=== PATIENT | female | born 1940 | race Hispanic/Latino ===

== ENCOUNTER 2018-08-16 06:00 | Day surgery (SDC) | payer OTHER ==
[2018-08-14 12:13] VITALS: BP 116/63
[2018-08-14 12:38] LABS: BASOPHILS % (AUTO) 0.8 % (0.0-5.0); EOSINOPHILS % (AUTO) 6.5 % (0.0-8.0); LYMPHOCYTES % (AUTO) 26.2 % (21.0-51.0); MEAN CORPUSCULAR HEMOGLOBIN 31.6 pg (27.0-33.0); MEAN CORPUSCULAR HGB CONC 33.3 g/dL (32.0-36.0); MEAN CORPUSCULAR VOLUME 94.6 fL (79-99); MONOCYTES % (AUTO) 9.2 % (3.0-13.0); NEUTROPHILS % (AUTO) 57.3 % (40.0-77.0); PLATELET COUNT (AUTO) 198 K/uL (130-400); RED BLOOD CELL COUNT(AUTO) 4.33 MIL/uL (4.00-5.50); RED CELL DISTRIBUTION WIDTH 13.7 % (11.0-15.5); WHITE BLOOD COUNT (AUTO) 5.4 K/uL (4.8-10.8)
[2018-08-14 12:39] LABS: APPEARANCE,URINE Turbid (CLEAR); BILIRUBIN,URINE Negative (NEGATIVE); COLOR,URINE Dark Yellow (YELLOW); GLUCOSE, URINE (UA) Negative (NEGATIVE); KETONES,URINE Trace mg/dL (NEGATIVE); LEUKOCYTE ESTERASE ,URINE Large (NEGATIVE); NITRATE,URINE Positive (NEGATIVE); OCCULT BLOOD,URINE Small (NEGATIVE); PH,URINE 5.5 (5.0-8.0); PROTEIN,URINE Trace (NEGATIVE)
[2018-08-14 12:46] LABS: CREATININE 1.4 mg/dL (0.5-1.5)
[2018-08-14 12:56] LABS: BACTERIA,URINE Many /HPF (None Seen); RBC,URINE None Seen /HPF (0-1)
[2018-08-14 12:57] LABS: SQUAMOUS EPITHELIAL CELL,UR Few /HPF (0-2)
[2018-08-14 12:58] LABS: WBC,URINE >100 /HPF (0-1)
[2018-08-14 13:02] LABS: INR 0.96 (0.85-1.15); PARTIAL THROMBOPLASTIN TIME 27.5 SEC (26.3-35.5); PROTHROMBIN TIME 10.1 SEC (9.6-11.6)
[~2018-08-16] VITALS: Ht 147.3 cm; Wt 96.6 kg
[2018-08-16] VITALS (11 sets, daily range): BP systolic 85–126; BP diastolic 44–71
[~2018-08-16 06:00] MED LIST: ASPI-1012 PO; BISA5TAB12 PO; CEFTRIAXONE SODIUM 1 GM IVP ONE; CHOL400C9 PO; FISH1CAP63 PO; HYDR-4064 PO; LEVO5TAB13 PO; LOSA25TA16 PO; MONT10TA24 PO; PANT40TA25 PO; VITA1CAP85 PO
[2018-08-16] MEDS ORDERED: SODIUM CHLORIDE 0.9% 1000ML 1,000 ML IV ONE (06:24)
[2018-08-16] MEDS ORDERED: LIDOCAINE HCL-MPF 2% 5ML VIAL ONE (07:11)
[2018-08-16] MEDS ORDERED: NITROGLYCERIN 5 MG/ML 10 ML VIAL IV ONE (07:11)
[2018-08-16] MEDS ORDERED: CEFTRIAXONE SODIUM 1 GM ONE (07:11)
[2018-08-16] MEDS ORDERED: BIVALIRUDIN 250 MG/VIAL IV ONE (07:11)
[2018-08-16] MEDS ORDERED: IOHEXOL-350 50ML VIAL IV ONE (07:14)
[2018-08-16] MEDS ORDERED: IOHEXOL 350 MG/ML 100ML INFUS..BTL IV ONE (07:14)
[2018-08-16] MEDS ORDERED: FENTANYL CITRATE PF 50 MCG/1 ML 2ML VIAL ONE (07:44)
[2018-08-16] MEDS ORDERED: MIDAZOLAM HCL 1 MG/ML 2ML VIAL ONE (07:44)
[2018-08-16] MEDS ORDERED: SODIUM CHLORIDE 0.9% 1000ML 1,000 ML IV SCH (08:20)
[2018-08-16] MEDS ORDERED: GLUCAGON 1MG KIT 1 MG ML IM PRN (08:30)
[2018-08-16] MEDS ORDERED: DEXTROSE 50%-WATER 50 ML DISP.SYRIN IV PRN (08:30)
[2018-08-16] MEDS ORDERED: NITROGLYCERIN 0.4 MG SL TAB SL PRN (08:30)
[2018-08-16] MEDS ORDERED: ACETAMINOPHEN-CODEINE 300/30MG TAB PO PRN (08:30)
[2018-08-16] MEDS ORDERED: METOPROLOL TARTRATE 1 MG/ML 5ML VIAL IV PRN (08:30)
== END 2018-08-16 14:40 | disposition home or self-care (01) ==
LOC: DAH 06:00 → SUH 06:00
PROVIDERS: ATTEND Internal Medicine Cardiovascular Disease
DX: I25.118 Atherosclerotic heart disease of native coronary artery with other forms of angina pectoris (principal); I50.32 Chronic diastolic (congestive) heart failure; J44.9 Chronic obstructive pulmonary disease, unspecified; N18.3 Chronic kidney disease, stage 3 (moderate); K21.9 Gastro-esophageal reflux disease without esophagitis; J45.909 Unspecified asthma, uncomplicated; E66.01 Morbid (severe) obesity due to excess calories; E78.2 Mixed hyperlipidemia; I83.008 Varicose veins of unspecified lower extremity with ulcer other part of lower leg; Z95.5 Presence of coronary angioplasty implant and graft; Z79.899 Other long term (current) drug therapy; Z79.82 Long term (current) use of aspirin; Z98.890 Other specified postprocedural states; Z79.01 Long term (current) use of anticoagulants; Z90.49 Acquired absence of other specified parts of digestive tract; Z90.89 Acquired absence of other organs
CPT/HCPCS: 36415; 71045; 80048; 81001; 85025; 85610; 85730; 93005; 93458; A4218; A4606; C1760; C1894 ×2; J0696; J1644; J2250; J3010; J3490 ×2; J7030; Q9965; Q9967 ×2; 99156; 99157; J0583

== ENCOUNTER → 2022-09-05 | Outpatient (CLI) | payer OTHER ==
[~2022-09-05] MED LIST changes: +BISA-151 PO; -BISA5TAB12 PO; -CEFTRIAXONE SODIUM 1 GM IVP ONE; -LOSA25TA16 PO; +LOSA25TA41 PO; +MONT-39 PO; -MONT10TA24 PO; -PANT40TA25 PO; +PANT40TA54 PO
== END | disposition home or self-care (01) ==
LOC: SHCH 14:37
PROVIDERS: ATTEND Internal Medicine Cardiovascular Disease
DX: I51.7 Cardiomegaly (principal); R06.09 Other forms of dyspnea; R60.9 Edema, unspecified
CPT/HCPCS: 93306

== ENCOUNTER → 2022-11-23 | Outpatient (CLI) | payer OTHER | END | disposition home or self-care (01) | LOC: SHCH 12:57 | PROVIDERS: ATTEND Internal Medicine Cardiovascular Disease | DX: I87.2 Venous insufficiency (chronic) (peripheral) (principal); I87.1 Compression of vein | CPT/HCPCS: 93970 ==